=== PATIENT | male | born 1955 | race Two or more races ===

== ENCOUNTER 2023-04-06 16:47 | Emergency (ER) | payer MEDICARE, SELFPAY ==
[2023-04-06 17:07] VITALS: BP 141/87; PULSE 73; RESP 14; TEMP 36.8; O2SAT 98; BMI 26.8
--- NOTE | 2023-04-06 17:17 | ED_ITS ---
HPI - General Adult General Chief complaint: Weakness Stated complaint: weak Time Seen by Provider: 04/06/23 17:11 Source: patient Mode of arrival: walk-in History of Present Illness HPI narrative: 67-year-old male presents for weakness. He's been feeling this way for the past week. He states he has some bugs in his apartment and is been spraying for them but they're biting him. No fever or vomiting. Appetite has been good. He doesn't complain of chest pain or shortness of breath or vomiting. Related Data Previous Rx's Medication Instructions Recorded permethrin 5 % topical cream 1 applic topical Q14D 2 doses #60 04/06/23 (Elimite) grams Allergies Allergy/AdvReac Type Severity Reaction Status Date / Time No Known Drug Allergies Allergy Verified 04/06/23 17:11 Review of Systems ROS Narrative A ten point review of systems is negative except as noted above. Exam Narrative Exam Narrative: Nurses note and vital signs reviewed and patient is not hypoxic. General: The patient appears well and in no apparent distress. Patient is resting comfortably on cart. Skin: Warm, dry, no pallor noted. There are several scattered erythematous areas consistent with a bug bite. Head: Normocephalic, atraumatic Eye: Normal conjunctiva, no drainage Ears, Nose, Mouth, and Throat: oral mucosa is moist. Nares patent. Cardiovascular: Regular Rate and Rhythm Respiratory: Patient is in no distress, no accessory muscle use, lungs are clear to auscultation, no wheezing, rales or rhonchi Back: non-tender GI: soft and nontender Musculoskeletal: The patient has no evidence of calf tenderness, no pitting edema, symmetrical pulses noted bilaterally Neurological: A&O, normal speech Psychiatric: Cooperative Constitutional Vital Signs, click to edit/add: Last Vital Signs Temp 98.3 F 04/06/23 17:07 Pulse 73 04/06/23 17:07 Resp 14 04/06/23 17:07 BP 141/87 04/06/23 17:07 Pulse Ox 98 04/06/23 17:07 O2 Del Method Room Air 04/06/23 17:17 Course Vital Signs Vital signs: Vital Signs Temperature 98.3 F 04/06/23 17:07 Pulse Rate 73 04/06/23 17:07 Respiratory Rate 14 04/06/23 17:07 Blood Pressure 141/87 04/06/23 17:07 Pulse Oximetry 98 04/06/23 17:07 Oxygen Delivery Method Room Air 04/06/23 17:07 Temperature 98.3 F 04/06/23 17:07 Pulse Rate 73 04/06/23 17:07 Respiratory Rate 14 04/06/23 17:07 Blood Pressure 141/87 04/06/23 17:07 Pulse Oximetry 98 04/06/23 17:07 Oxygen Delivery Method Room Air 04/06/23 17:17 Medical Decision Making MDM Narrative Medical decision making narrative: blood work and EKG are normal. He'll be prescribed Elimite and follow-up with his doctor if symptoms persist. Treatment diagnosis and follow-up were discussed with the patient. Differential Diagnosis Differential Diagnosis: distress, anemia, LATASHA, insect bite Lab Data Lab results reviewed: Yes I reviewed the patient's lab results Labs: Lab Results 04/06/23 Range/Units 17:34 WBC 6.5 (4.0-11.0) 10^3/uL RBC 4.18 L (4.70-6.10) 10^6/uL Hgb 13.2 L (14.0-18.0) g/dL Hct 39.6 L (42.0-54.0) % MCV 94.7 H (80.0-94.0) fL MCH 31.6 (25.9-34.0) pg MCHC 33.3 (29.9-35.2) g/dL RDW 13.9 (11.0-15.0) % Plt Count 194 (150-450) 10^3/uL MPV 11.0 (9.5-13.5) fL Neut % (Auto) 71.9 (43.0-75.0) % Lymph % (Auto) 20.1 L (20.5-60.0) % Kimble % (Auto) 7.0 (1.7-12.0) % Eos % (Auto) 0.5 L (0.9-7.0) % Baso % (Auto) 0.3 (0.2-2.0) % Neut # (Auto) 4.7 (1.4-6.5) 10^3/uL Lymph # (Auto) 1.3 (1.2-3.8) 10^3/uL Kimble # (Auto) 0.5 (0.3-0.8) 10^3/uL Eos # (Auto) 0.0 (0.0-0.7) 10^3/uL Baso # (Auto) 0.0 (0.0-0.1) 10^3/uL Abs Immat Gran (auto) 0.01 (0.00-0.03) 10^3/uL Imm/Tot Granulo (auto) 0.2 (0.0-0.5) % Sodium 140 (136-145) mmol/L Potassium 3.9 (3.5-5.1) mmol/L Chloride 104 (98-107) mmol/L Carbon Dioxide 27.8 (21.0-32.0) mmol/L Anion Gap 12.1 BUN 15.0 (7.0-18.0) mg/dL Creatinine 1.10 (0.70-1.30) mg/dL Est GFR ( Amer) >60 (>=60) Est GFR (Non-Af Amer) >60 (>=60) BUN/Creatinine Ratio 13.6 Glucose 92 (74-106) mg/dL Calcium 8.7 (8.5-10.1) mg/dL ECG Data Attestation: I personally reviewed and interpreted this ECG as follows: (EKG on my interpretation shows normal sinus rhythm with a rate of 68.) Discharge Plan Discharge Chief Complaint: Weakness Clinical Impression: Fatigue, Rash Patient Disposition: Home, Self-Care Time of Disposition Decision: 18:09 Condition: Good Mode of Transportation: Private Vehicle Prescriptions / Home Meds: New permethrin [Elimite] 5 % cream 1 applic topical Q14D Qty: 60 0RF Rx Instructions: apply second treatment 14 days after first treatment if rash still present Instructions: Insect Bite or Sting (ED), Acute Rash (ED) Stand Alone Forms: Portal Instructions Referrals: Physician,Non-Staff, MD [Primary Care Provider] - 1 week
--- NOTE | 2023-04-06 17:17 | ECG_ITS ---
[facility] Test Date: 2023-04-06 Pat Name: THONY MIN Department: Room: - Gender: Male [employer]: : [id number] Requested By: Order Number: [id number] Reading MD: BRANT VEE Measurements Intervals [place] Rate: 68 P: 66 SC: 180 QRS: -6 QRSD: 98 T: 54 QT: 392 QTc: 409 Interpretive Statements 1100 Sinus rhythm 2440 Incomplete right bundle branch block 9130 borderline ECG No previous ECG available for comparison Electronically Signed On 04-06-2023 19:02:23 EDT by BRANT VEE
--- NOTE | 2023-04-06 17:18 | PC.NURSE ---
pt reports weakness for 2 days
[2023-04-06 17:42] LABS: Basophils Percent Auto 0.3 % (0.2-2.0); Eosinophils Percent Auto 0.5 % (0.9-7.0); Hematocrit 39.6 % (42.0-54.0); Hemoglobin 13.2 g/dL (14.0-18.0); Immature Granulocytes Abs Auto 0.01 10^3/uL (0.00-0.03); Immature Granulocytes Pct Auto 0.2 % (0.0-0.5); Lymphocytes Absolute Auto 1.3 10^3/uL (1.2-3.8); Lymphocytes Percent Auto 20.1 % (20.5-60.0); Mean Corpuscular HGB Conc 33.3 g/dL (29.9-35.2); Mean Corpuscular Hemoglobin 31.6 pg (25.9-34.0); Mean Corpuscular Volume 94.7 fL (80.0-94.0); Monocytes Absolute Auto 0.5 10^3/uL (0.3-0.8); Neutrophils Absolute Auto 4.7 10^3/uL (1.4-6.5); Neutrophils Percent Auto 71.9 % (43.0-75.0); Platelet Count 194 10^3/uL (150-450); Red Blood Count 4.18 10^6/uL (4.70-6.10); Red Cell Distribution Width 13.9 % (11.0-15.0); White Blood Count 6.5 10^3/uL (4.0-11.0)
[2023-04-06 17:51] LABS: Anion Gap 12.1; BUN Creatinine Ratio 13.6; Calcium 8.7 mg/dL (8.5-10.1); Carbon Dioxide 27.8 mmol/L (21.0-32.0); Chloride 104 mmol/L (98-107); Estimated GFR (African America >60 (>=60); Estimated GFR (Non-African Ame >60 (>=60); Glucose 92 mg/dL (74-106); Potassium 3.9 mmol/L (3.5-5.1); Sodium 140 mmol/L (136-145)
== END 2023-04-06 18:25 | disposition home or self-care (01) ==
PROVIDERS: Emergency Provider Emergency Medicine
DX: R53.83 Other fatigue (principal); R21 Rash and other nonspecific skin eruption
CPT/HCPCS: 36415; 80048; 85025; 93005; 99284